=== PATIENT | female | born 1985 | race African-American/Black ===

== ENCOUNTER 2018-04-11 18:47 | Emergency (ER) | payer BC ==
[~2018-04-11] VITALS: Ht 160 cm; Wt 130.0 kg
[2018-04-11 19:10] VITALS: Ht 160 cm; Wt 130.0 kg
[2018-04-11] MEDS ORDERED: PRENAVITE1 TAB PO (19:12)
[2018-04-11 21:40] VITALS: BP 148/101
== END 2018-04-11 21:40 | disposition home or self-care (01) ==
LOC: D.ER 18:47
DX: S93.402A Sprain of unspecified ligament of left ankle, initial encounter (principal); X58.XXXA Exposure to other specified factors, initial encounter; Y93.89 Activity, other specified; Y92.89 Other specified places as the place of occurrence of the external cause

== ENCOUNTER 2020-07-13 18:11 | Emergency (ER) | payer BC ==
[~2020-07-13] VITALS: Ht 160 cm; Wt 140.9 kg
[~2020-07-13 18:11] MED LIST: PRENAVITE1 TAB PO
[2020-07-13 18:17] VITALS: BP 161/90; Ht 160 cm; Wt 140.9 kg
[2020-07-13] MEDS ORDERED: BACLOFEN20 M1 PO (18:41)
[2020-07-13] MEDS ORDERED: VOLTAREN75 MG PO (18:41)
== END 2020-07-13 20:15 | disposition home or self-care (01) ==
LOC: D.ER 18:11
DX: M54.5 Low back pain (principal); M79.10 Myalgia, unspecified site